=== PATIENT | male | born 1980 | race Caucasian/White ===

== ENCOUNTER 2018-06-09 15:26 | Emergency (ER) | payer OTHER | END 2018-06-09 19:47 | disposition home or self-care (01) | LOC: FTE 15:26 | DX: H10.9 Unspecified conjunctivitis (principal) | CPT/HCPCS: 99284; Z7502 ==

== ENCOUNTER 2018-08-03 20:47 | Emergency (ER) | payer OTHER ==
[2018-08-04] MEDS: IBUPROFEN 600 MG TAB PO (00:40)
== END 2018-08-04 03:02 | disposition home or self-care (01) ==
LOC: FTE 20:47
DX: S93.401A Sprain of unspecified ligament of right ankle, initial encounter (principal); S96.911A Strain of unspecified muscle and tendon at ankle and foot level, right foot, initial encounter; W01.0XXA Fall on same level from slipping, tripping and stumbling without subsequent striking against object, initial encounter; Y92.9 Unspecified place or not applicable
CPT/HCPCS: 73610; 73610-RT; 99283-25

== ENCOUNTER 2019-05-23 16:25 | Emergency (ER) | payer OTHER ==
[2019-05-23] MEDS: IBUPROFEN 600 MG TAB PO (20:24)
== END 2019-05-23 21:57 | disposition home or self-care (01) ==
LOC: FTE 16:25
DX: M79.671 Pain in right foot (principal); M25.571 Pain in right ankle and joints of right foot
CPT/HCPCS: 73610; 73610-RT; 73630; 99283-25